=== PATIENT | male | born 1955 | race Caucasian/White ===

== ENCOUNTER 2018-10-23 16:05 | Inpatient (IN) | payer BC ==
[~2018-10-23] VITALS: Ht 188 cm; Wt 119.4 kg
[2018-10-23] MEDS ORDERED: LORAZEPAM 2MG/ML CPJ ONE (16:09)
[2018-10-23] MEDS ORDERED: SODIUM CHLORIDE 0.9% 1,000 ML IV ONE (16:10)
[2018-10-23] MEDS ORDERED: LORAZEPAM 2MG/ML CPJ IV ONE (16:15)
[2018-10-23] MEDS ORDERED: LEVETIRACETAM 1000MG/100ML 100 ML IV ONE (16:15)
[2018-10-23 16:26] LABS: BASOPHILS % 0.4 % (0.0-2.0); EOSINOPHILS % 1.5 % (0.0-5.0); HEMATOCRIT. 55.3 % (42.0-52.0); HEMOGLOBIN. 17.5 g/dL (14.0-18.0); LYMPHOCYTES % 36.1 % (20.0-50.0); MEAN CORPUSCULAR HEMOGLOBIN 28.1 pg (28.0-32.0); MEAN CORPUSCULAR VOLUME 88.9 fL (80.0-94.0); MONOCYTES % 7.1 % (2.0-8.0); NEUTROPHILS % 54.9 % (40.0-76.0); PLATELET 293 x1000/uL (130-400); RED BLOOD CELL COUNT 6.22 mill/uL (4.7-6.1); RED CELL DISTRIBUTION WIDTH 14.8 % (11.6-14.6)
[2018-10-23 16:31] LABS: CHLORIDE 112 mEq/L (98-107)
[2018-10-23 16:34] LABS: D-DIMER 1.23 mg/L FEU (<0.50)
[2018-10-23 16:36] LABS: ETHANOL BLOOD < 10 mg/dL
[2018-10-23 16:38] LABS: LDL CHOLESTEROL 181 mg/dL (5-100)
[2018-10-23 16:39] LABS: CREATINE KINASE 349 IU/L (39-308)
[2018-10-23 16:47] LABS: BG BASE EXCESS -17.2 mmol/L (-2.0-2.0); BG CARBOXYHEMOGLOBIN 0.3 % (0.5-1.5); BG DEOXYHEMOGLOBIN 0.5 % (0.0-5.0); BG FRACTION INSPIRED OXYGEN 100; BG HCO3 ACT 10.9 mmol/L (22.0-26.0); BG METHEMOGLOBIN 0.8 % (0.0-1.5); BG OXYGEN SATURATION 99.5 % (92.0-98.5); BG OXYHEMOGLOBIN 98.4 % (94.0-97.0); BG PCO2 33.5 mmHg (35.0-45.0); BG PH 7.129 (7.350-7.450); BG PO2 383.5 mmHg (75.0-100.0); BG SAMPLE SITE LEFT BRACHIAL; BG VENT MODE MASK - NRB
[2018-10-23 16:47] LABS: CARBAMAZEPINE < 0.5 ug/mL (4-12); PHENOBARBITAL < 2.1 ug/mL (15.0-40.0)
[2018-10-23] MEDS ORDERED: VANCOMYCIN 1 G PREMIX 200 ML IV ONE (17:00)
[2018-10-23] MEDS ORDERED: PIPERACILLIN/TAZ 3.375G PREMIX 50 ML IV ONE (17:00)
[2018-10-23 17:57] LABS: CLARITY URINE CLEAR (CLEAR); COLOR URINE YELLOW (YELLOW); KETONES URINE TRACE (NEGATIVE); LEUKOCYTE ESTERASE URINE NEGATIVE (NEGATIVE); NITRITE URINE NEGATIVE (NEGATIVE); OCCULT BLOOD URINE 1+ (NEGATIVE); PROTEIN URINE 2+ (NEGATIVE); SPECIFIC GRAVITY URINE 1.019 (1.005-1.030); UROBILINOGEN URINE 0.2 E.U./dL (0.2-1.0)
[2018-10-23 18:07] LABS: *AMPHETAMINES SCREEN URINE PRESUMTIVE POSITIVE (NEGATIVE); *BARBITURATES SCREEN URINE NEGATIVE (NEGATIVE); *BENZODIAZEPINES SCREEN URINE NEGATIVE (NEGATIVE)
[2018-10-23 18:08] LABS: *COCAINE SCREEN URINE NEGATIVE (NEGATIVE); CANNABINOID URINE SCREEN NEGATIVE (NEGATIVE); METHADONE URINE SCREEN NEGATIVE (NEGATIVE); OPIATES URINE SCREEN PRESUMTIVE POSITIVE (NEGATIVE); PHENCYCLIDINE URINE SCREEN NEGATIVE (NEGATIVE)
[2018-10-23] MEDS ORDERED: IPRATROPIUM/ALBUTEROL 0.5-3(2.5)MG/3ML NEB INH PRN (20:15)
[2018-10-23] MEDS ORDERED: MAGNESIUM/ALUMINUM HYDROXIDE/SIMETHICONE 30ML UDC PO PRN (20:15)
[2018-10-23] MEDS ORDERED: NA PHOS,M-B/NA PHOS,DI-BA ENEMA 118ML PR PRN (20:15)
[2018-10-23] MEDS ORDERED: HYDROCODONE/ACETAMINOPHEN 5/325MG TABLET PO PRN (20:15)
[2018-10-23] MEDS ORDERED: LORAZEPAM 2MG/ML CPJ IV PRN ×2 (20:15)
[2018-10-23] MEDS ORDERED: ONDANSETRON HCL 4MG/2ML INJ IV PRN (20:15)
[2018-10-23] MEDS ORDERED: CLONIDINE 0.1MG TABLET PO PRN (20:15)
[2018-10-23] MEDS ORDERED: DOCUSATE SODIUM 100MG CAPSULE PO PRN (20:15)
[2018-10-23] MEDS ORDERED: ACETAMINOPHEN 325MG TABLET PO PRN (20:15)
[2018-10-23] MEDS ORDERED: GUAIFENESIN 200MG/10ML SUGAR FREE UDC PO PRN (20:15)
[2018-10-23] MEDS ORDERED: PIPERACILLIN/TAZ 3.375G PREMIX 50 ML IV SCH (20:45)
[2018-10-23] MEDS ORDERED: LACTULOSE 20G/30ML UDC PO NR (20:45)
[2018-10-23] MEDS: DEXTROSE 5% WATER 1,000 ML IV SCH (21:52)
[2018-10-23 23:45] LABS: CREATINE KINASE MB FRACTION 7.7 ng/mL (0.5-3.6)
[2018-10-24 05:10] LABS: BASOPHILS % 0.3 % (0.0-2.0); EOSINOPHILS % 0.8 % (0.0-5.0); HEMATOCRIT. 42.4 % (42.0-52.0); HEMOGLOBIN. 14.4 g/dL (14.0-18.0); LYMPHOCYTES % 10.7 % (20.0-50.0); MEAN CORPUSCULAR HEMOGLOBIN 28.6 pg (28.0-32.0); MEAN CORPUSCULAR VOLUME 84.6 fL (80.0-94.0); MEAN PLATELET VOLUME 8.5 fl (7.4-10.4); MONOCYTES % 8.6 % (2.0-8.0); NEUTROPHILS % 79.6 % (40.0-76.0); PLATELET 174 x1000/uL (130-400); RED BLOOD CELL COUNT 5.01 mill/uL (4.7-6.1); RED CELL DISTRIBUTION WIDTH 14.2 % (11.6-14.6)
[2018-10-24 05:16] LABS: CHLORIDE 114 mEq/L (98-107)
[2018-10-24 05:51] LABS: CREATINE KINASE 557 IU/L (39-308)
[2018-10-24 05:53] LABS: T4 FREE 0.99 ng/dL (0.76-1.46)
[2018-10-24 06:10] LABS: CREATINE KINASE MB FRACTION QNS ng/mL (0.5-3.6)
[2018-10-24 07:00] LABS: CREATINE KINASE MB FRACTION 7.4 ng/mL (0.5-3.6)
[2018-10-24 10:13] LABS: T4 FREE 0.89 ng/dL (0.76-1.46)
[2018-10-24] MEDS: DEXTROSE 5% WATER 1,000 ML IV SCH (11:20)
[2018-10-24 14:42] LABS: CREATINE KINASE MB FRACTION 7.1 ng/mL (0.5-3.6)
[2018-10-24 15:07] LABS: BG BASE EXCESS 2.2 mmol/L (-2.0-2.0); BG CARBOXYHEMOGLOBIN 0.5 % (0.5-1.5); BG DEOXYHEMOGLOBIN 2.5 % (0.0-5.0); BG HCO3 ACT 26.5 mmol/L (22.0-26.0); BG METHEMOGLOBIN 0.2 % (0.0-1.5); BG OXYGEN SATURATION 97.5 % (92.0-98.5); BG OXYHEMOGLOBIN 96.8 % (94.0-97.0); BG PCO2 40.4 mmHg (35.0-45.0); BG PH 7.435 (7.350-7.450); BG PO2 101.6 mmHg (75.0-100.0); BG SAMPLE SITE RIGHT BRACHIAL; BG TOTAL HEMOGLOBIN 14.1 g/dL (12.0-18.0); BG VENT MODE ROOM AIR
[2018-10-24 16:24] VITALS: BP 166/93
[2018-10-24] MEDS ORDERED: HYDROMORPHONE HCL/PF 2MG/ML CPJ IV PRN (17:00)
[2018-10-24] MEDS: ASPIRIN 81MG EC TABLET PO SCH (17:18)
[2018-10-24 18:00] VITALS: BP 159/89
[2018-10-24] MEDS: PIPERACILLIN/TAZ 3.375G PREMIX 50 ML IV SCH (19:38)
[2018-10-24 20:00] VITALS: BP 143/72
[2018-10-24] MEDS ORDERED: VANCOMYCIN 2,000 MG in DEXT 5% WATER 500 ML IV NR (20:00)
[2018-10-24] MEDS: CLOBETASOL 0.05 % CREAM 15GM TOP SCH (21:50)
[2018-10-24] MEDS: ENOXAPARIN 30MG/0.3ML SYR SUBCUT SCH (21:50)
[2018-10-24] MEDS: LACTULOSE 20G/30ML UDC PO SCH (21:50)
[2018-10-24 22:00] VITALS: BP 145/74
[2018-10-24] MEDS: SODIUM CHLORIDE 0.9% INJ 3ML FLUSH IVF SCH (22:06)
[2018-10-24] MEDS ORDERED: LEVE750T4 MT (22:39)
[2018-10-24] MEDS ORDERED: DEXT10TA4 MT (22:39)
[2018-10-24] MEDS ORDERED: FURO-152 MT (22:39)
[2018-10-24] MEDS ORDERED: MELO-106 MT (22:39)
[2018-10-24] MEDS ORDERED: TRIA0.2579 MT (22:39)
[2018-10-24] MEDS ORDERED: POTA25TA8 MT (22:39)
[2018-10-24] MEDS ORDERED: PREG75CA MT (22:39)
[2018-10-24 23:56] LABS: CREATINE KINASE MB FRACTION 6.4 ng/mL (0.5-3.6)
[2018-10-25] VITALS (13 sets, daily range): BP systolic 124–174; BP diastolic 74–99
[2018-10-25] MEDS: PIPERACILLIN/TAZ 3.375G PREMIX 50 ML IV SCH ×4 (00:44→17:20)
[2018-10-25] MEDS: DIPHENHYDRAMINE 50MG/ML VIAL IV PRN ×2 (04:20→23:57)
[2018-10-25] MEDS: SODIUM CHLORIDE 0.9% INJ 3ML FLUSH IVF SCH ×3 (06:02→21:22)
[2018-10-25] MEDS: LACTULOSE 20G/30ML UDC PO SCH ×3 (06:29→21:22)
[2018-10-25 06:51] LABS: BASOPHILS % 0.3 % (0.0-2.0); EOSINOPHILS % 2.7 % (0.0-5.0); HEMATOCRIT. 41.7 % (42.0-52.0); MEAN CORPUSCULAR HEMOGLOBIN 28.7 pg (28.0-32.0); MEAN CORPUSCULAR VOLUME 85.5 fL (80.0-94.0); MEAN PLATELET VOLUME 8.8 fl (7.4-10.4); MONOCYTES % 9.7 % (2.0-8.0); NEUTROPHILS % 73.3 % (40.0-76.0); PLATELET 158 x1000/uL (130-400); RED BLOOD CELL COUNT 4.87 mill/uL (4.7-6.1); RED CELL DISTRIBUTION WIDTH 14.3 % (11.6-14.6)
[2018-10-25] MEDS ORDERED: VANCOMYCIN 1250MG in DEXTROSE 5% WATER 250ML IV SCH (07:00)
[2018-10-25 07:09] LABS: CHLORIDE 111 mEq/L (98-107)
[2018-10-25 07:31] LABS: CREATINE KINASE 562 IU/L (39-308)
[2018-10-25 07:34] LABS: CREATINE KINASE MB FRACTION 5.2 ng/mL (0.5-3.6)
[2018-10-25] MEDS: ASPIRIN 81MG EC TABLET PO SCH (08:19)
[2018-10-25] MEDS: LEVETIRACETAM 250MG TABLET PO SCH ×2 (08:19→21:21)
[2018-10-25] MEDS: CLOBETASOL 0.05 % CREAM 15GM TOP SCH ×2 (08:19→21:23)
[2018-10-25] MEDS: ENOXAPARIN 30MG/0.3ML SYR SUBCUT SCH ×2 (08:20→21:21)
[2018-10-25] MEDS: HYDRALAZINE 20MG/ML VIAL IV PRN (08:20)
[2018-10-25] MEDS ORDERED: REGADENOSON 0.4 MG/5 ML IV ONE (17:45)
[2018-10-25] MEDS: VANCOMYCIN 1250MG in DEXTROSE 5% WATER 250ML IV SCH (21:18)
[2018-10-26] VITALS (10 sets, daily range): BP systolic 142–170; BP diastolic 65–85
[2018-10-26] MEDS: PIPERACILLIN/TAZ 3.375G PREMIX 50 ML IV SCH ×2 (00:03→06:01)
[2018-10-26] MEDS: HYDRALAZINE 20MG/ML VIAL IV PRN (03:43)
[2018-10-26] MEDS: SODIUM CHLORIDE 0.9% INJ 3ML FLUSH IVF SCH ×2 (05:49→14:16)
[2018-10-26] MEDS: LACTULOSE 20G/30ML UDC PO SCH ×2 (05:58→14:17)
[2018-10-26] MEDS ORDERED: REGADENOSON 0.4 MG/5 ML IV ONE (09:56)
[2018-10-26] MEDS: ASPIRIN 81MG EC TABLET PO SCH (11:44)
[2018-10-26] MEDS: LEVETIRACETAM 250MG TABLET PO SCH (11:45)
[2018-10-26] MEDS: CLOBETASOL 0.05 % CREAM 15GM TOP SCH (11:45)
[2018-10-26] MEDS: ENOXAPARIN 30MG/0.3ML SYR SUBCUT SCH (11:49)
[2018-10-26] MEDS: VANCOMYCIN 1250MG in DEXTROSE 5% WATER 250ML IV SCH (11:50)
[2018-10-26] MEDS ORDERED: PREGABALIN 75MG CAPSULE PO SCH (13:30)
[2018-10-26 14:25] LABS: CHLORIDE 109 mEq/L (98-107)
[2018-10-26] MEDS ORDERED: PIPERACILLIN/TAZ 3.375G PREMIX 50 ML IV SCH (15:00)
== END 2018-10-26 18:23 | disposition home or self-care (01) | DRG 101 ==
LOC: ER 16:05 → EDBEDREQSVC 17:07 → EDBEDREQ 17:07 → EDBEDREQTM 10-24 07:11 → EDBEDREQSVC 10-24 07:11 → ENRESERV 10-24 14:56 → 3WST 10-24 16:42
PROVIDERS: ADMIT Internal Medicine; ATTEND Internal Medicine
DX: G40.909 Epilepsy, unspecified, not intractable, without status epilepticus (principal); M62.82 Rhabdomyolysis; E87.2 Acidosis; R65.10 Systemic inflammatory response syndrome (SIRS) of non-infectious origin without acute organ dysfunction; I10 Essential (primary) hypertension; F90.9 Attention-deficit hyperactivity disorder, unspecified type; E78.5 Hyperlipidemia, unspecified; I87.2 Venous insufficiency (chronic) (peripheral); L40.9 Psoriasis, unspecified; G62.9 Polyneuropathy, unspecified
CPT/HCPCS: 36415; 36600; 71045; 78452; 80048; 80061; 80156; 80165; 80184; 80185; 80202; 80305; 80320; 82140; 82375; 82542; 82550; 82553; 82805; 82962; 83036; 83605; 83721; 83880; 84439; 84443; 84484; 85379; 93005; 93017; 93970; 96365; 96366; 99285; A9500; J0360; J1170; J1200; J1650; J1953; J2060; J2543; J2785; J3370; J7030; J7050; J7060; J7070; G0480